=== PATIENT | male | born 1985 | race African-American/Black ===

== ENCOUNTER 2022-12-23 17:47 | Emergency (ER) | payer OTHER, SELFPAY ==
--- NOTE | ~2022-12-23 | XR_ITS ---
EXAMINATION: XR chest 2V DATE: 12/23/2022 18:07 INDICATION: Shortness of breath and chest pain TECHNIQUE: Frontal and lateral views of the chest are obtained COMPARISON: None available FINDINGS: The lungs are free of acute opacities. No pleural effusion or pneumothorax. The cardiomedia stinal silhouette is normal. The visualized bones and soft tissues are unremarkable. IMPRESSION: 1. No acute cardiopulmonary abnormality. Reviewed, dictated and finalized at location F.
[2022-12-23 17:49] VITALS: BP 150/74; PULSE 64; RESP 16; TEMP 36.8; O2SAT 100
[2022-12-23 18:37] VITALS: BP 132/81; PULSE 65; RESP 15; O2SAT 100; O2SAT 99
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
== END 2022-12-23 20:12 | disposition home or self-care (01) ==
PROVIDERS: Emergency Provider Student in an Organized Health Care Education/Training Program; PCP Family Medicine
DX: R06.02 Shortness of breath (principal); S06.0X0A Concussion without loss of consciousness, initial encounter; G40.909 Epilepsy, unspecified, not intractable, without status epilepticus; V49.40XA Driver injured in collision with unspecified motor vehicles in traffic accident, initial encounter
CPT/HCPCS: 71046; 99283

== ENCOUNTER 2024-01-04 13:59 | Outpatient (CLI) | payer OTHER, SELFPAY ==
[2024-01-04 19:02] LABS: Basophils Percent Auto 0.5 % (0.2-1.2); Eosinophils Absolute Auto 0.2 K/mm3 (0-0.3); Eosinophils Percent Auto 2.3 % (0-4.4); Hematocrit 45.3 % (42.0-52.0); Immature Granulocyte Absolute 0.02 K/mm3 (0.00-0.031); Immature Granulocyte Percent A 0.2 % (0-0.5); Lymphocytes Absolute Auto 2.84 K/mm3 (0.9-3.2); Lymphocytes Percent Auto 32.8 % (18.3-44.2); Mean Corpuscular HGB Conc 33.1 g/dl (32-36); Mean Corpuscular Hemoglobin 30.5 pg (26-34); Mean Corpuscular Volume 92.1 fl (80-100); Mean Platelet Volume 10.5 fl (7.4-10.4); Monocytes Absolute Auto 0.8 K/mm3 (0.1-0.6); Monocytes Percent Auto 8.7 % (2.6-8.5); Neutrophils Absolute Auto 4.8 K/mm3 (1.3-6.7); Neutrophils Percent Auto 55.5 % (45.5-73.1); Platelet Count Result 272 k/mm3 (150-375); Red Blood Count 4.92 M/mm3 (4.6-6.20); Red Cell Distribution Width 12.3 % (11.5-14.5); White Blood Count 8.7 K/mm3 (4.5-10.0)
[2024-01-04 20:30] LABS: Alanine Aminotransferase 28 U/L (6-50); Albumin Level 4.4 g/dL (3.5-5.1); Alkaline Phosphatase 55 U/L (38-126); Anion Gap 6 mmol/L (4-12); Aspartate Amino Transferase 39 U/L (17-59); Bilirubin,Total 0.6 mg/dL (0.2-1.3); Blood Urea Nitrogen 13 mg/dL (9-20); Calcium 9.4 mg/dL (8.4-10.2); Carbon Dioxide 30 mmol/L (22-30); Chloride 101 mmol/L (98-107); Cholesterol 145 mg/dL (0-200); Estimated Glomerular Filt Rate > 60; Glucose 91 mg/dL (65-110); HDL Direct 75 mg/dL; Sodium 137 mmol/L (137-145); Triglycerides 39 mg/dL (<150)
[2024-01-04 20:41] LABS: LDL Cholesterol Direct 51 mg/dL
[2024-01-04 21:02] LABS: Vitamin D 25 Hydroxy 23.6 ng/mL
[2024-01-04 21:16] LABS: Thyroid Stimulating Hormone Reflex 0.308 uIU/mL (0.465-4.68)
[2024-01-04 21:22] LABS: Vitamin B12 > 1000.0 pg/mL (239-931)
[2024-01-05 00:37] LABS: Free T4 Free Thyroxine Reflex 0.96 ng/dL (0.78-2.19)
[2024-01-05 01:22] LABS: Total Triiodothyronine (T3) 1.18 NG/ML (0.97-1.69)
[2024-01-07 12:19] LABS: Carbamazepine Tegretol 6.2 mcg/mL (4.0-12.0)
== END 2024-01-04 14:00 | disposition home or self-care (01) ==
LOC: ANHGOSHLAB 14:01
PROVIDERS: PCP Family Medicine; Visit Provider Family Medicine
DX: E53.8 Deficiency of other specified B group vitamins (principal); E55.9 Vitamin D deficiency, unspecified; G40.919 Epilepsy, unspecified, intractable, without status epilepticus; Z13.220 Encounter for screening for lipoid disorders; Z13.29 Encounter for screening for other suspected endocrine disorder; Z79.899 Other long term (current) drug therapy; Z00.00 Encounter for general adult medical examination without abnormal findings
CPT/HCPCS: 36415; 80053; 80061; 80156; 82306; 82607; 84439; 84443; 84480; 85025